=== PATIENT | female | born 1950 | race Caucasian/White ===

== ENCOUNTER 2017-09-13 17:27 | Emergency (ER) | payer BC ==
[2017-09-13 17:33] VITALS: BP 147/82; PULSE 92; TEMP 98.2; BMI 21.1
--- NOTE | 2017-09-13 17:33 | PDOC ---
History of Present Illness - History of Present Illness Initial Comments: 09/13/17 17:37 The patient is a 67 year old female, with no significant past medical history, who presents to the emergency department with pain, bruising, and swelling to her right wrist after stopping a mechanical fall with her right outstretched arm. She denies any other traumas. SHe states she has been icing and denies use of OTC pain medication. She denies numbness or tingling of her digits. She denies chest pain, shortness of breath, headache and dizziness. She denies fever, chills, nausea, vomit, diarrhea and constipation. She denies dysuria, frequency, urgency and hematuria. Allergies: NKDA <Alcyia Rogers - Last Filed: 09/13/17 18:47> <Praveen Quijano - Last Filed: 09/13/17 18:51> - General Chief Complaint: Injury Stated Complaint: RIGHT WRIST INJURY S/P FALL Time Seen by Provider: 09/13/17 17:32 Past History <Alycia Rogers - Last Filed: 09/13/17 18:47> - Past Medical History COPD: No Other medical history: pt denies - Surgical History Abdominal Surgery: Yes (hernia,abdominal plasty) - Suicide/Smoking/Psychosocial Hx Smoking History: Never smoked Substance Use Type: None <Praveen Quijano - Last Filed: 09/13/17 18:51> - Past Medical History Allergies/Adverse Reactions: Allergies Allergy/AdvReac Type Severity Reaction Status Date / Time No Known Allergies Allergy Verified 09/13/17 17:28 Home Medications: Ambulatory Orders Oxycodone HCl/Acetaminophen [Percocet 5-325 mg Tablet] 1 tab PO Q4H #10 tablet MDD 6 09/13/17 Review of Systems - Review of Systems Able to Perform ROS?: Yes Is the patient limited Lebanese proficient: No Constitutional: No: Symptoms Reported, Chills, Diaphoresis, Fever, Loss of Appetite, Malaise, Night Sweats, Weakness HEENTM: No: Symptoms Reported, Eye Pain, Blurred Vision, Tearing, Double Vision , Ear Pain Respiratory: No: Symptoms reported, Cough, Orthopnea, Shortness of Breath Cardiac (ROS): No: Symptoms Reported, Chest Pain, Edema, Irregular Heart Rate, Lightheadedness, Palpitations, Syncope ABD/GI: No: Symptoms Reported, Abdominal Distended, Blood Streaked Bowels, Constipated, Diarrhea, Nausea, Rectal Bleeding, Vomiting : No: Symptoms Reported, Burning, Dysuria, Discharge, Frequency, Flank Pain, Hematuria, Incontinence, Urgency Musculoskeletal: Yes: Joint Pain (right wrist pain), Joint Swelling (rigth wrist swelling), Muscle Pain (right wrist). No: Neck Pain, Joint Stiffness Integumentary: Yes: Bruising (right wrist). No: Erythema, Lesions, Rash Neurological: No: Headache, Numbness, Paresthesia, Tingling, Weakness, Unsteady Gait, Ataxia, Dizziness Endocrine: No: Symptoms Reported, Excessive Sweating, Intolerance to Cold, Intolerance to Heat, Increased Hunger, Increased Urine Hematologic/Lymphatic: No: Anemia, Blood Clots, Easy Bruising All Other Systems: Reviewed and Negative <Alycia Rogers - Last Filed: 09/13/17 18:47> *Physical Exam - Vital Signs Last Vital Signs Temp Pulse Resp BP Pulse Ox 98.2 F 92 H 18 147/82 100 09/13/17 17:28 09/13/17 17:28 09/13/17 17:28 09/13/17 17:28 09/13/17 17:28 - Physical Exam General Appearance: Yes: Nourished, Appropriately Dressed. No: Apparent Distress HEENT: positive: EOMI, ANDRIA, Normal ENT Inspection, Normal Voice, Symmetrical, TMs Normal, Pharynx Normal Neck: positive: Trachea midline, Normal Thyroid, Supple. negative: Tender Respiratory/Chest: positive: Lungs Clear, Normal Breath Sounds. negative: Chest Tender, Respiratory Distress, Accessory Muscle Use Cardiovascular: positive: Regular Rhythm, Regular Rate Gastrointestinal/Abdominal: positive: Normal Bowel Sounds. negative: Tender Musculoskeletal: positive: Normal Inspection. negative: Vertebral Tenderness Extremity: positive: Normal Capillary Refill, Tender (tenderness over the dorsum of right wrist), Swelling (mild swelling to right wrist). negative: Normal Inspection (R wrist deformity noted. ), Normal Range of Motion (limited ROM of right wirst flexion/extension), Erythema Integumentary: positive: Normal Color, Dry, Warm, Swelling (Right wrist), Ecchymosis (faint ecchymosis over dorsum of right wrist) Neurologic: positive: lead fabricator II-XII NML intact, Fully Oriented, Alert, Normal Mood/ Affect, Normal Response, Motor Strength 5/5 <Alycia Rogers - Last Filed: 09/13/17 18:47> ED Treatment Course - ADDITIONAL ORDERS Additional order review: 09/13/17 18:17 Right wrist + fracture angulation distal radius 09/13/17 18:17 Pt has good pulses, deformity, swelling and ecchymosis, no compartment syndrome Will splint and will need Orthopedic follow up Motrin, Percocet, icing If worsen return to ER 09/13/17 18:43 Pt is feeling better with splint. Will need Orthopedic referral. 09/13/17 18:50 Left message and several calls to Dr. Rao cheese production supervisor, no call back Pt is in agreement with plan <Praveen Quijano - Last Filed: 09/13/17 18:51> Medical Decision Making - Medical Decision Making 09/13/17 17:59 Dr. Rao, Orthopedics on-call, was paged via phone answering service requesting a doctor to doctor consult at this time. 09/13/17 18:19 Dr. Rao, Orthopedics on-call, was paged a 2nd time via phone answering service requesting a doctor to doctor consult. 09/13/17 18:42 Dr. Rao, Orthopedics on-call, was paged a 3rd time via phone answering service requesting a doctor to doctor consult. A voicemail was left by [employer], phone answering service, requesting to call back for doctor to doctor. <Alycia Rogers - Last Filed: 09/13/17 18:47> *DC/Admit/Observation/Transfer - Attestations Scribe Attestion: 09/13/17 17:45 Documentation prepared by Alycia Rogers, acting as biomedical instrument technician for Praveen Quijano MD <Alycia Rogers - Last Filed: 09/13/17 18:47> - Discharge Dispostion Admit: No <Praveen Quijano - Last Filed: 09/13/17 18:51> Diagnosis at time of Disposition: Fracture of radius, distal, right, closed Qualifiers: Encounter type: initial encounter Fracture morphology: unspecified fracture morphology Qualified Code(s): S52.501A - Unspecified fracture of the lower end of right radius, initial encounter for closed fracture Distal end of ulna fracture, closed Qualifiers: Encounter type: initial encounter Fracture morphology: unspecified fracture morphology Laterality: right Qualified Code(s): S52.601A - Unspecified fracture of lower end of right ulna, initial encounter for closed fracture - Discharge Dispostion Disposition: HOME Condition at time of disposition: Stable - Prescriptions Prescriptions: Oxycodone HCl/Acetaminophen [Percocet 5-325 mg Tablet] 1 tab PO Q4H #10 tablet MDD 6 - Referrals Referrals: Ja Rao MD [Staff Physician] - - Patient Instructions Printed Discharge Instructions: DI for Wrist Fracture Additional Instructions: Splint, ice, Motrin Percocet 5/325 mg 1 tab every 4 hr as needed for pain Follow up with Orthopedics If worsen return to ER
[2017-09-13] MEDS ORDERED: IBUPROFEN 600 MG TABLET (FP) PO ONE ×2 (17:35→17:39)
== END 2017-09-13 19:01 | disposition home or self-care (01) ==
LOC: FER 17:27
PROC: 2W3CX1Z Immobilization of Right Lower Arm using Splint (ICD-10-PCS; principal; 2017-09-13)
DX: S52.601A Unspecified fracture of lower end of right ulna, initial encounter for closed fracture (principal); S52.501A Unspecified fracture of the lower end of right radius, initial encounter for closed fracture; W18.39XA Other fall on same level, initial encounter; Y93.89 Activity, other specified; Y92.9 Unspecified place or not applicable
CPT/HCPCS: 29125; 73110-TC-RT; 99282-25

== ENCOUNTER 2017-09-17 06:05 | Day surgery (SDC) | payer BC ==
[2017-09-15 13:29] VITALS: BMI 21.1
--- NOTE | 2017-09-17 08:30 | HP ---
Satellite [facility] - Chief Complaint Chief Complaint: right wrist pain History Source: Patient Limitations to Obtaining History: No Limitations - Past Medical History Allergies/Adverse Reactions: Allergies Allergy/AdvReac Type Severity Reaction Status Date / Time No Known Allergies Allergy Verified 09/15/17 13:29 - Current Medications Current Medications: Home Medications Medication Instructions Recorded Oxycodone HCl/Acetaminophen 1 tab PO Q4H #10 tablet MDD 6 09/13/17 [Percocet 5-325 mg Tablet] Acetaminophen [Tylenol] 325 mg PO PRN PRN 09/17/17 Satellite Physical Exam - Physical Examination Vital Signs: Vital Signs Period Temp Pulse Resp BP Sys/Navarrete Pulse Ox Last 24 Hr 97.5 F 77 18 117/65 98 General Appearance: Well Nourished ENT: Clear Lung: Clear to auscultation Heart: Regular rate & rhythm Breasts: Soft Abdomen: Soft Extremities: No edema Satellite Impression/Plan - Impression/Plan Impression: right distal radius fracture Operative Procedure: right distal radius ORIF Date to be Performed: 09/17/17
[2017-09-17] MEDS ORDERED: ROPIVACAINE HCL 0.5% 30ML VIAL ONE (08:48)
[2017-09-17] MEDS ORDERED: MIDAZOLAM HCL 2 MG/2 ML SINGLE DOSE VIAL ONE ×3 (08:54→09:35)
[2017-09-17] MEDS ORDERED: LIDOCAINE HCL 1%, 10 MG/ML (20ML VIAL) ONE (09:55)
[2017-09-17] MEDS ORDERED: ONDANSETRON 4 MG/2 ML VIAL IVPUSH PRN (10:03)
[2017-09-17] MEDS ORDERED: BUPIVACAINE HCL/PF 0.5% (5MG/ML) 10 ML VIAL ONE (10:11)
[2017-09-17] MEDS ORDERED: LACTATED RINGERS SOLUTION 1,000 ML IV SCH (10:15)
[2017-09-17] MEDS ORDERED: PROPOFOL 20 ML ONE ×2 (10:26)
[2017-09-17] MEDS ORDERED: ceFAZolin SODIUM 1 GM VIAL IVPB ONE (10:30)
[2017-09-17] MEDS ORDERED: LIDOCAINE HCL 1%, 10 MG/ML (20ML VIAL) NR ONE (10:34)
[2017-09-17] MEDS ORDERED: BUPIVACAINE HCL/PF 0.5% (5MG/ML) 10 ML VIAL IJ ONE (10:34)
[2017-09-17] MEDS ORDERED: ceFAZolin SODIUM 1 GM VIAL ONE (10:41)
--- NOTE | 2017-09-17 11:17 | OP ---
Operative Note - Note: Operative Date: 09/17/17 Pre-Operative Diagnosis: right distal radius fracture, displaced Operation: right distal radius ORIF, Brachioradialis tenotomy Implants: [employer] low profile titanium DVR plate and screws Surgeon: [facility] Supervisor: Heladio Montenegro Anesthesiologist/COMMERCIAL REAL ESTATE ASSISTANT: Nahun Palacios Anesthesia: Local, MAC Estimated Blood Loss (mls): 0 Drains, Volume Out (mls): 0 Blood Volume Replaced (mls): 0 Fluid Volume Replaced (mls): 700 Operative Report Dictated: Yes
[2017-09-17] MEDS ORDERED: ACETAMINOPHEN INJECTION 100 ML IVPB ONE (11:35)
[2017-09-17] MEDS ORDERED: ACETAMINOPHEN 1000 MG/100 ML VIAL (NON FORMULARY) IVPB ONE (12:53)
[2017-09-17 13:02] VITALS: TEMP 97.8
[2017-09-17 13:34] VITALS: BP 124/76; PULSE 71
--- NOTE | 2017-09-18 09:12 | SPEC ---
DATE OF OPERATION: 09/17/2017 PREOPERATIVE DIAGNOSIS: Right distal radius fracture, displaced. POSTOPERATIVE DIAGNOSIS: Right distal radius fracture, displaced. PROCEDURE: Right distal radius open reduction and internal fixation and brachioradialis tenotomy. SURGEON: Ja Rao MD CONSULTING HR PROFESSIONAL: MARISELA Diaz ANESTHESIOLOGIST: ANESTHESIA: MAC anesthesia with right interscalene block. DRAINS: None. COMPLICATIONS: None. FLUID REPLACEMENT: 500 mL INDICATION FOR PROCEDURE: This patient is a 67-year-old female with a preoperative diagnosis of displaced right distal radius fracture. After understanding the potential risks, complications, alternatives, and benefits of surgical versus nonsurgical treatment, the patient elected to undergo this procedure. DESCRIPTION OF PROCEDURE: The entire case was done under 3.8 loupe magnification. Typical FCR approach was marked out with a marking pen and incision made with No. 15 scalpel blade. Subcutaneous hemostasis was achieved with a bipolar cautery. The radial artery was retracted gently in a radial direction and ulnar to this, using a fresh No. 15 scalpel blade, the muscular fascia was incised. Blunt dissection was done with my index finger down to the volar aspect of the distal radius. Weitlaner retractors were placed deep into the wound for visualization. A periosteal elevator was used to do subperiosteal dissection exposing the fracture site. There was a main transverse component to the distal radius fracture but in addition there were several pieces, some extending towards the radial carpal joint and some towards the distal radial ulnar joint. The fracture site was copiously irrigated and washed out. All debris including hematoma and muscle were removed. A provisional reduction was performed and seemed to come together quite nicely. There was a small metaphyseal defect. X-rays were taken in A-P and lateral planes documenting excellent position of the fracture fragments, restoring radial height inclination and volar tilt. Next a standard hand innovations left volar low profile DVR plate was placed on the volar aspect of the distal radius. Two K-wires were placed and x-rays were taken documenting excellent position, length and subchondral position. Next the central 3.5 mm screw was placed in a standard fashion, this was 14 mm in length, and the second-most ulnar proximal row screw was placed. This was a 24 mm partially threaded locking screw. X-rays again were taken documenting excellent position and support of the subchondral bone. The rest of the screws were then put in, first 2 additional purple proximal screws of 12 and 14 mm in length for 6 cortices proximally and then the silver drill bit was used to put in the remaining 6 screws of both the proximal and distal row from 18 mm to 24 mm of length, all partially threaded locking screws. All of the guides were removed and passed off the field. Final x-rays were taken in A-P and lateral planes. I was quite happy with the fracture reduction position, position of the radial carpal joint, distal radial ulnar joint length, height and tilt. There were no complications during the case. There were 4 distal screws of 20, 22, 22, and 22 mm in length. There were 3 more proximal 3.5-mm screws of 12, 12, and 14 mm in length. Total tourniquet time was 40 minutes. Karina [id number]
== END 2017-09-17 15:00 | disposition home or self-care (01) ==
LOC: JASU-SURG 06:05
PROVIDERS: ATTEND Orthopaedic Surgery
PROC: 0PSH04Z Reposition Right Radius with Internal Fixation Device, Open Approach (ICD-10-PCS; principal; 2017-09-17 09:00)
DX: S52.591A Other fractures of lower end of right radius, initial encounter for closed fracture (principal); X58.XXXA Exposure to other specified factors, initial encounter; Y93.9 Activity, unspecified; Y92.9 Unspecified place or not applicable; Y99.9 Unspecified external cause status
CPT/HCPCS: 76000-TC